=== PATIENT | male | born 1995 | race Two or more races ===

== ENCOUNTER 2018-08-19 18:19 | Emergency (ER) | payer SELFPAY ==
[~2018-08-19] VITALS: Ht 170.2 cm; Wt 68.0 kg
[2018-08-19 18:38] VITALS: BP 139/73
[2018-08-19] MEDS ORDERED: DIPHTH,PERTUSS(ACELL),TET TOX 0.5 ML DISP.SYRIN. VAX IM ONE ×2 (19:10→19:15)
[2018-08-19] MEDS ORDERED: LIDOCAINE 1% PF 2 ML VIAL. INJ ONE (19:15)
[2018-08-19] MEDS ORDERED: CEPH-264 PO (19:46)
[2018-08-19] MEDS ORDERED: NAPR-683 PO (19:46)
--- NOTE | 2018-08-19 19:46 | PHYS DOC ---
Past Medical History Past Medical History: No Pertinent History (MAGED MAYES) Past Surgical History: No Surgical History (MAGED MAYES) Alcohol Use: Rarely Drug Use: None (MAGED MAYES) Adult General Chief Complaint Chief Complaint: LACERATION/AVULSION HPI HPI Patient is a 23 year old M who was working on his car and cut his L thumb on a sharp piece of metal. He is unsure of his last tetanus. He is primarily Indian speaking so the boat ride operator phone was used. (MAGED MAYES) Review of Systems Review of Systems Constitutional: Denies fever or chills Respiratory: Denies cough or shortness of breath Cardiovascular: Denies chest pain GI: Denies abdominal pain, nausea, vomiting, bloody stools or diarrhea Musculoskeletal: Denies back pain. Reports L thumb pain. Integument: Reports L thumb laceration. Neurologic: Denies headache, focal weakness or sensory changes All other systems were reviewed and found to be within normal limits, except as documented in this note. (MAGED MAYES) Current Medications Current Medications Current Medications Medications (Trade) Dose Ordered Sig/Cyndy Start Time Stop Time Status Last Admin Dose Admin Diphtheria/ Tetanus/Acell Pertussis (Boostrix) 0.5 ml STK-MED ONCE 08/19/18 19:10 08/20/18 17:48 DC Lidocaine HCl (Xylocaine-Mpf 1% 2ml Vial) 2 ml 1X ONCE 08/19/18 19:15 08/19/18 19:16 DC 08/19/18 19:12 2 ML (JUSTINE LOVING MD) Allergies Allergies Allergies Coded Allergies Type Severity Reaction Last Updated Verified No Known Drug Allergies 08/19/18 No (JUSTINE LOVING MD) Physical Exam Physical Exam Constitutional: Well developed, well nourished, no acute distress, non-toxic appearance. Neck: Normal range of motion, no tenderness, supple, no stridor. Cardiovascular:Heart rate regular rhythm, no murmur Lungs & Thorax: Bilateral breath sounds clear to auscultation Abdomen: Bowel sounds normal, soft, no tenderness, no masses, no pulsatile masses. Skin: 4 cm laceration to L thumb on palmar aspect Back: No tenderness, no CVA tenderness. Extremities: No cyanosis, no clubbing, ROM intact, no edema. L thumb laceration, full ROM, neurovascularly intact. Neurologic: Alert and oriented X 3, normal motor function, normal sensory function, no focal deficits noted. Psychologic: Affect normal, judgement normal, mood normal. (MAGED MAYES) Current Patient Data Vital Signs Vital Signs Date Time Temp Pulse Resp B/P (MAP) Pulse Ox O2 Delivery O2 Flow Rate FiO2 08/19/18 18:38 98.4 84 18 139/73 (95) 100 Room Air 98.4 (JUSTINE LOVING MD) EKG EKG [] (MAGED MAYES) Radiology/Procedures Radiology/Procedures [] (MAGED MAYES) Course & Med Decision Making Course & Med Decision Making Pertinent Labs and Imaging studies reviewed. (See chart for details) Pt's wound was closed with sutures. Wound was then bandaged. Sutures to come out in 7-10 days. Pt did have a vaso vagal reaction during suturing but did not have LOC. He became pale and sweaty and nauseated. He was laid back on the chair, given an emesis bucket and a cool wash cloth was applied to head. He was feeling much better quickly after procedure was done and was given a sprite, which he tolerated well. Discussed vagal reaction with pt via the boat ride operator phone and to rest and push fluids. Pt voices understanding. Tetanus was updated. (MAGED MAYES) Course & Med Decision Making Staff Physician Addendum: I was working in the ER during the course of this patient's visit. I was available for consultation as needed, but I was not directly involved in the care of this patient. (JUSTINE LOVING MD) Dragon Disclaimer Dragon Disclaimer This electronic medical record was generated, in whole or in part, using a voice recognition dictation system. (MAGED MAYES) Laceration Repair Lac Repair Indication: L thumb laceration Procedure: The patient was placed in the appropriate position and 4cc of lidocaine was administered via digital block by transthecal technique. The area was then cleansed with betadine soap. The laceration was closed with 5-0 nylon. The wound area was then dressed with nonstick gauze and coban. Total repaired wound length: 4 cm. Other Items: 5 sutures of 5-0 nylon The patient had vasovagal reaction during procedure but recovered fully and quickly. Complications: none (MAGED MAYES) Departure Departure Impression: Primary Impression: Laceration of thumb Additional Impression: Vaso vagal episode Disposition: HOME, SELF-CARE Condition: IMPROVED Referrals: NO PCP (PCP) Patient Instructions: Laceration Care, Adult, Near-Syncope, [id number] Additional Instructions: Stitches out in 7-10 days. Your tetanus was updated today. Scripts Naproxen (NAPROSYN) 500 Mg Tablet 1 TAB PO BID for 7 Days, #14 TAB 1 Refill Prov: MAGED MAYES 08/19/18 Cephalexin (KEFLEX) 500 Mg Capsule 1 CAP PO TID, #21 CAP Prov: MAGED MAYES 08/19/18 Problem Qualifiers MAGED MAYES Aug 19, 2018 19:46 JUSTINE LOVING MD Aug 25, 2018 07:31
== END 2018-08-19 19:52 | disposition home or self-care (01) ==
LOC: ER 18:19
DX: S61.012A Laceration without foreign body of left thumb without damage to nail, initial encounter (principal); R55 Syncope and collapse; W26.8XXA Contact with other sharp object(s), not elsewhere classified, initial encounter; Y93.89 Activity, other specified; Y92.89 Other specified places as the place of occurrence of the external cause; Y99.8 Other external cause status
CPT/HCPCS: 12002; 90471; 90715; 99283